=== PATIENT | female | born 1950 | race Caucasian/White ===

== ENCOUNTER → 2017-11-21 | Outpatient (CLI) | payer OTHER ==
[~2017-11-21] VITALS: Ht 154.9 cm; Wt 77.6 kg
[~2017-11-21] MED LIST: ALLOPURINOL 10100 M3 PO; ANTACID650 MG PO; ATORVASTATIN CA40 MG PO; LASIX 40 MG TAB40 M2 PO; LEVEMIR FL100 UNIT/2 SUBQ; LISINOPRIL10 MG PO; LOVAZA1000 MG PO; NOVOLOG FL100 UNIT/M SUBQ; RENVELA800 MG PO
--- NOTE | ~2017-11-21 | HPC ---
[facility] [place] [address] PAIN MANAGEMENT CONSULTATION Name: MIGUEL ANGEL EPPERSON Room #: REG FRAN Velazquez#: [id number] Admission: 11/21/17 Attend Phys: Bennett Harvey DO Discharge: Date of : 50 Report #: [id number] THIS REPORT FOR: //name// CC: Shena Harvey The patient is a pleasant 67-year-old female, seen 10/25/2017, diagnosed with symptomatic cervical radiculopathy. Comorbidity includes chronic kidney disease. She is predialysis, she does have a shunt in her right forearm. She is on a kidney transplant list. We did one epidural injection at initial consultation. The patient noted 100% relief for about 7 days, pain began to recur. It is still better than baseline, but she has pain in the neck, right shoulder and arm. I reviewed the MRI, which does note neural foraminal narrowing at C6-C7 compatible with symptoms. Physical exam does show positive Lhermitte's with slight decreased right biceps strength and paresthesia in a C6 distribution. ASSESSMENT: Symptomatic cervical radiculopathy, incremental improvement following single epidural injection. RECOMMENDATIONS: After discussion with the patient today, we have elected to proceed with repeat epidural injection under fluoroscopy using 60 mg triamcinolone in consideration of her diabetes. We will make tentative appointment to see the patient in 4 weeks. If pain recurs to baseline, we will have the patient contact Neurosurgery for consideration for surgical intervention, though in truth symptoms do not appear quite as dramatic as one might expect would warrant surgery. Also, given the patient is on a kidney transplant list, she is loathe to have any other surgeries in the interval, which would preclude her from immediate surgery as a renal transplant recipient. ASSESSMENT: Symptomatic cervical radiculopathy. PROCEDURE: Cervical epidural steroid injection under fluoroscopy. PROCEDURE NOTE: After written and informed consent was obtained including risk of dural puncture, spinal cord trauma, paralysis and increased pain, the patient was taken to the fluoroscopy suite and placed in the prone position, with appropriate abdominal bolstering, neck was flexed, palms under the thighs. Skin was prepped with ChloraPrep. Sterile draping was applied. Skin wheal with 1% Xylocaine was raised. A 22-gauge 3-1/2 inch epidural Tuohy needle was placed via a midline approach at the C7-T1 interspace, advanced under biplanar fluoroscopy using continuous loss of resistance. With appropriate loss of resistance at the expected depth on lateral view, the glass loss of resistance syringe was disconnected. A low volume extension tubing was connected to the [facility] [address] [place] [address] PAIN MANAGEMENT CONSULTATION Name: MIGUEL ANGEL EPPERSON Room #: REG FRAN Velazquez#: [id number] Admission: 11/21/17 Attend Phys: Bennett Harvey DO Discharge: Date of : 50 Report #: [id number] needle and a 5 mL syringe. Negative aspiration for cerebrospinal fluid or blood was noted. A 1 mL of Omnipaque was injected which showed spread within the epidural space on biplanar fluoroscopy. This was followed with injectate of 60 mg of triamcinolone plus 1 mL of 1.5% preservative Xylocaine. Needle was withdrawn to the interspinous ligament, 0.5 mL of Xylocaine was used to flush the needle. The needle was then completely withdrawn. The area was cleansed. Band-Aid was applied. The patient was allowed to move off the procedure table and ambulated to the recovery room, monitored for an appropriate period of time, discharged in good and stable condition. <ELECTRONICALLY SIGNED> By: Bennett Harvey DO 11/22/17 [id number] Bennett Harvey DO /nt
[2017-11-21 10:06] VITALS: BP 160/89
== END | disposition home or self-care (01) ==
LOC: PAIN 11-11 07:03
DX: M54.12 Radiculopathy, cervical region (principal); E11.22 Type 2 diabetes mellitus with diabetic chronic kidney disease; N18.9 Chronic kidney disease, unspecified; Z94.0 Kidney transplant status